=== PATIENT | male | born 1975 | race Caucasian/White ===

== ENCOUNTER 2022-10-25 14:48 | Emergency (ER) | payer SELFPAY ==
[~2022-10-25] VITALS: Ht 185.4 cm; Wt 79.4 kg
[2022-10-25 15:41] LABS: BASOPHILS % 0.4 % (0.0-1.0); EOSINOPHILS # (AUTO) 0.5 (0.0-0.4); EOSINOPHILS % 6.5 % (0.0-6.0); HEMATOCRIT 42.8 % (38.2-49.6); HEMOGLOBIN 13.2 g/dL (14.0-18.0); LYMPHOCYTES # (AUTO) 1.6 (1.0-3.2); LYMPHOCYTES % 22.4 % (18.0-39.1); MEAN CORPUSCULAR HEMOGLOBIN 30.3 pg (28-32); MEAN CORPUSCULAR HGB CONC 30.8 g/dL (31-35); MEAN CORPUSCULAR VOLUME 98.4 fL (81-99); MONOCYTES # (AUTO) 1.2 (0.2-0.8); NEUTROPHILS # (AUTO) 3.8 (2.1-6.9); NEUTROPHILS % 53.6 % (38.7-80.0); PLATELET COUNT 321 x10e3/uL (140-360); RED BLOOD COUNT 4.35 x10e6/uL (4.3-5.7); RED CELL DISTRIBUTION WIDTH 12.7 % (11.7-14.4)
[2022-10-25 15:53] LABS: INR 0.97; PROTHROMBIN TIME 13.1 seconds (11.9-14.5)
[2022-10-25 16:03] LABS: ALBUMIN 3.7 g/dL (3.5-5.0); ALBUMIN/GLOBULIN RATIO 1.2 (0.8-2.0); ANION GAP 11.9 mmol/L (8-16); CREATININE, SERUM 0.94 mg/dL (0.72-1.25); POTASSIUM 3.9 mmol/L (3.5-5.1)
[2022-10-25] MEDS ORDERED: CETIRIZINE HCL10 MG PO (16:49)
[2022-10-25] MEDS ORDERED: HYDROCHLOROTHIA25 MG PO (16:49)
[2022-10-25] MEDS ORDERED: PREDNISONE50 MG PO (16:49)
== END 2022-10-25 17:00 | disposition home or self-care (01) ==
LOC: ER 14:50
DX: R21 Rash and other nonspecific skin eruption (principal); R60.9 Edema, unspecified
CPT/HCPCS: 36415; 71045; 80053; 83880; 85025; 85610; 93005; 99284